=== PATIENT | male | born 1955 | race Caucasian/White ===

== ENCOUNTER → 2019-11-06 08:36 | Outpatient (BNVA) | payer MEDICARE, SELFPAY | PROVIDERS: Family Provider Nurse Practitioner Family; PCP Nurse Practitioner Family; Visit Provider Nurse Practitioner Family | DX: E11.65 Type 2 diabetes mellitus with hyperglycemia (principal); Z79.4 Long term (current) use of insulin; E78.5 Hyperlipidemia, unspecified; I10 Essential (primary) hypertension | CPT/HCPCS: 80053; 80061; 83036; 84443; 85025 ==

== ENCOUNTER → 2020-06-30 10:54 | Outpatient (BNVA) | payer MEDICARE, SELFPAY | PROVIDERS: Family Provider Nurse Practitioner Family; PCP Nurse Practitioner Family; Visit Provider Nurse Practitioner Family | DX: M25.551 Pain in right hip (principal) | CPT/HCPCS: 73502 ==

== ENCOUNTER 2020-07-20 08:20 | Outpatient (CLI) | payer MEDICARE, SELFPAY ==
--- NOTE | 2020-07-20 08:45 | MR_ITS ---
WS: [id number] MRI RIGHT hip, noncontrast. HISTORY: RIGHT hip pain. COMPARISON: RIGHT hip radiograph 06/30/2020. There is increase fluid in the medial RIGHT hip joint. There is an osteophyte from the medial femoral head and a corresponding osteophyte from the acetabular fossa causing narrowing of the hip joint. Th is is at the location of the increased fluid and thickening of the labrum and ligamentum teres. No ma rrow edema or fracture. No definite labral tear. A small loose body may also be present. There is a r ounded 3 mm low signal nodule in the joint space. May be thickening of the labrum or small loose body . These findings are asymmetric to the LEFT hip. MR/MR hip RT wo con* [id number] IMPRESSION: 1. Focal osteophyte from the medial femoral head and acetabulum causing narrowi ng of the medial RIGHT joint space with a small amount of associated fluid and labral thickening. 2. Possible 3 mm loose body in the medial joint space associated with the joint space narrowing and labral thickening.
== END 2020-07-20 08:21 | disposition home or self-care (01) ==
PROVIDERS: PCP Nurse Practitioner Family; Visit Provider Nurse Practitioner Family
DX: M25.551 Pain in right hip (principal)
CPT/HCPCS: 73721

== ENCOUNTER → 2020-09-06 10:05 | Outpatient (BNVA) | payer MEDICARE, SELFPAY | PROVIDERS: PCP Nurse Practitioner Family; Referring Provider Nurse Practitioner Family; Visit Provider Specialist | DX: G25.0 Essential tremor (principal) | CPT/HCPCS: 99204 ==

== ENCOUNTER → 2020-11-15 10:22 | Outpatient (BNVA) | payer MEDICARE, SELFPAY | PROVIDERS: PCP Nurse Practitioner Family; Visit Provider Nurse Practitioner Family | DX: E11.69 Type 2 diabetes mellitus with other specified complication (principal); Z79.4 Long term (current) use of insulin; Z12.5 Encounter for screening for malignant neoplasm of prostate; E11.42 Type 2 diabetes mellitus with diabetic polyneuropathy | CPT/HCPCS: 80053; 80061; 83036; 84443; 85025; G0103 ==

== ENCOUNTER 2021-05-05 12:08 | Emergency (ER) | payer MEDICARE, SELFPAY ==
[2021-05-05 12:19] VITALS: BP 126/69; PULSE 75; RESP 16; TEMP 36.6; O2SAT 97; BMI 24.1
--- NOTE | 2021-05-05 12:35 | W.ED.WOUNDLC ---
HPI - Wound/Laceration General: Chief Complaint: Wound/Laceration Stated Complaint: Cutt Knee has [place] on it Time Seen by Provider: 05/05/21 12:21 History of Present Illness: Laceration left knee from chainsaw accident happened earlier today. No active bleeding. Patient's tetanus is not up-to-date. Associated symptoms: Denies chills, fever(s), nausea or vomiting Review of Systems Const: Denies: fever(s), chills or body aches Eyes: Denies: eye discomfort ENMT: Denies: throat pain Card: Denies: chest pain Resp: Denies: dyspnea GI: Denies: abdominal pain, nausea or vomiting Skin/Breast: Reports: other (Laceration to left knee to chainsaw accident this morning.); Denies: rash Neuro: Denies: headache(s) Psych: Denies: depression or suicidal ideation [facility] ED PFSH: Medical History Diabetic neuropathy Dyslipidemia Essential hypertension Type 2 diabetes mellitus Surgical History No pertinent past surgical history Family History Father Cancer Social History Smoking and tobacco status: never smoked Quit status (tobacco): has quit using tobacco Second hand smoke exposure: No Smoking risk assessment/counseling performed?: No Alcohol intake: never Desire information about alcohol rehabilitation?: No Counseling given: No Desire information about substance/drug rehabilitation?: No Counseling given: No Adopted: No Caregiver/support person: No Lives independently: Yes Household members: spouse Housing: House Marital status: History of recent travel: No Physical Exam Const: COMMON NORMALS: no acute distress Extremity: LEFT LOWER EXTREMITY: Yes knee joint (No damage to the knee joint does have avulsion to skin above the kneecap.) Skin: OTHER: Avulsion injury approximately one half 2 inches long above left kneecap. Area was cleaned. Wound left open due to wound with which is with the chain. No foreign body seen. Superficial depth. Dressing applied Course Vital Signs: Vital signs: Vital Signs Temperature 97.9 F 05/05/21 12:19 Pulse Rate 75 03/17/22 12:19 Respiratory Rate 16 05/05/21 12:19 Blood Pressure 126/69 05/05/21 12:19 Pulse Oximetry 97 05/05/21 12:19 MDM - Wound/Laceration Medical Decision Making Skin avulsion left knee Discharge Plan Discharge Patient Disposition: Home Clinical Impression: Avulsion of skin Condition: Stable Prescriptions: New clindamycin HCl 300 mg capsule 300 mg PO Q8H 7 Days Qty: 21 0RF No Action amitriptyline 75 mg tablet 75 mg PO DAILY 90 Days Qty: 90 3RF Lantus Solostar U-100 Insulin 100 unit/mL (3 mL) insulin pen 28 unit SUBCUT DAILY 90 Days Qty: 15 3RF lovastatin 20 mg tablet 20 mg PO DAILY 90 Days Qty: 90 3RF metformin 1,000 mg tablet 1,000 mg PO BID 90 Days Qty: 180 3RF lisinopril-hydrochlorothiazide 20-12.5 mg tablet 1 tab PO DAILY 90 Days Qty: 90 3RF insulin aspart U-100 [Novolog Flexpen U-100 Insulin] 100 unit/mL (3 mL) insulin pen See Rx Instructions SUBCUT QID 90 Days Qty: 15 3RF Rx Instructions: 8 units SUBCUT four times daily; per sliding scale Discharge Orders: Discharge ED (Routine); Ordered 05/05/21 Ordered By: Duglas Sutton Referrals: Elba Jameson FNP-C [Primary Care Provider] - Discharge Diet: Usual diet Discharge Activity: Increase activity as tolerated Patient Instructions: Skin Avulsion (ED) Activity Restrictions/Additional Instructions: Take medication as directed. Keep area clean. Can use Vaseline petroleum keep wound moist and keep wound covered. It will take time for that wound to granulate in. Watch for signs symptoms of infection follow-up your primary care provider as necessary. Coding Level of Care Code ED Rehabilitation Consultant for Andi Fwd Exam Expanded Problem Focused
[2021-05-05] MEDS: tetanus-dipt-pertussis 0.5 mL SDV IM (12:54)
== END 2021-05-05 12:57 | disposition home or self-care (01) ==
PROVIDERS: Emergency Provider Nurse Practitioner Family; PCP Nurse Practitioner Family
DX: S81.002A Unspecified open wound, left knee, initial encounter (principal); W29.3XXA Contact with powered garden and outdoor hand tools and machinery, initial encounter; Z79.84 Long term (current) use of oral hypoglycemic drugs; Z79.4 Long term (current) use of insulin; E11.40 Type 2 diabetes mellitus with diabetic neuropathy, unspecified; E78.5 Hyperlipidemia, unspecified; I10 Essential (primary) hypertension; Z87.891 Personal history of nicotine dependence; Z23 Encounter for immunization
CPT/HCPCS: 90471; 90715; 99282

== ENCOUNTER → 2021-07-20 14:02 | Outpatient (BNVA) | payer MEDICARE, SELFPAY | PROVIDERS: PCP Nurse Practitioner Family; Visit Provider Nurse Practitioner Family | DX: R82.90 Unspecified abnormal findings in urine (principal); N39.0 Urinary tract infection, site not specified | CPT/HCPCS: 81000; 87077; 87086; 87184 ==

== ENCOUNTER → 2021-08-04 10:04 | Outpatient (BNVA) | payer MEDICARE, SELFPAY | PROVIDERS: PCP Nurse Practitioner Family; Visit Provider Nurse Practitioner Family | DX: R82.90 Unspecified abnormal findings in urine (principal); R39.9 Unspecified symptoms and signs involving the genitourinary system | CPT/HCPCS: 81000 ==

== ENCOUNTER → 2021-11-24 10:50 | Outpatient (BNVA) | payer MEDICARE, SELFPAY | PROVIDERS: PCP Nurse Practitioner Family; Visit Provider Nurse Practitioner Family | DX: E11.69 Type 2 diabetes mellitus with other specified complication (principal); Z79.4 Long term (current) use of insulin; E78.5 Hyperlipidemia, unspecified; I10 Essential (primary) hypertension; E11.42 Type 2 diabetes mellitus with diabetic polyneuropathy | CPT/HCPCS: 80053; 80061; 83036; 84443; 85025 ==

== ENCOUNTER → 2022-11-15 10:15 | Outpatient (BNVA) | payer MEDICARE, SELFPAY | PROVIDERS: PCP Nurse Practitioner Family; Visit Provider Nurse Practitioner Family | DX: E78.5 Hyperlipidemia, unspecified (principal); E11.69 Type 2 diabetes mellitus with other specified complication; Z79.4 Long term (current) use of insulin; I10 Essential (primary) hypertension; E11.42 Type 2 diabetes mellitus with diabetic polyneuropathy; E11.40 Type 2 diabetes mellitus with diabetic neuropathy, unspecified; Z12.5 Encounter for screening for malignant neoplasm of prostate | CPT/HCPCS: 80053; 80061; 83036; 84443; 85025; G0103 ==

== ENCOUNTER → 2022-12-26 14:25 | Outpatient (BNVA) | payer MEDICARE, SELFPAY | PROVIDERS: PCP Nurse Practitioner Family; Visit Provider Nurse Practitioner Family | DX: S29.9XXA Unspecified injury of thorax, initial encounter (principal); X58.XXXA Exposure to other specified factors, initial encounter | CPT/HCPCS: 71046 ==

== ENCOUNTER → 2023-03-28 09:10 | Outpatient (BNVA) | payer MEDICARE, SELFPAY | PROVIDERS: PCP Nurse Practitioner Family; Visit Provider Nurse Practitioner Family | DX: M79.631 Pain in right forearm (principal) | CPT/HCPCS: 73090 ==

== ENCOUNTER → 2024-03-04 11:01 | Outpatient (BNVA) | payer MEDICARE, SELFPAY | PROVIDERS: PCP Nurse Practitioner Family; Visit Provider Nurse Practitioner Family | DX: E11.42 Type 2 diabetes mellitus with diabetic polyneuropathy (principal); G25.0 Essential tremor | CPT/HCPCS: 80053; 80061; 83036; 84443; 85025 ==

== ENCOUNTER → 2024-10-24 10:59 | Outpatient (BNVA) | payer MEDICARE, SELFPAY | PROVIDERS: PCP Nurse Practitioner Family; Referring Provider Nurse Practitioner Family; Visit Provider Nurse Practitioner | DX: F03.90 Unspecified dementia, unspecified severity, without behavioral disturbance, psychotic disturbance, mood disturbance, and anxiety (principal); R41.89 Other symptoms and signs involving cognitive functions and awareness; R53.83 Other fatigue | CPT/HCPCS: 36415; 82607; 84443; 99213 ==

== ENCOUNTER 2024-11-12 10:49 | Outpatient (CLI) | payer MEDICARE, SELFPAY ==
--- NOTE | 2024-11-12 11:00 | MR_ITS ---
WS: [id number] MRI BRAIN WITH AND WITHOUT CONTRAST HISTORY: R41.89 - Other symptoms and signs involving cognitive fun... COMPARISON: None available. TECHNIQUE: Multiplanar imaging performed through the brain with MultiHance 15 ml's IV. No diffusion abnormalities. Moderate symmetric atrophy in the cerebrum. Mild cerebellar atrophy. There are extensive T2 and FLAIR signal hyperintensities throughout the white matter extending from the supratentorial white matter inferiorly extending around the ventricles. No hemosiderin. No white matter changes in the lonnie or cerebellum. Moderate bilateral hippocampal atrophy. No susceptibility artifacts or prior lacunar infarcts. Mildly prominent ventricles and extra-axial spaces on the basis of atrophy. Clivus and pituitary gland are normal. Visualized posterior fossa and brainstem are also normal. Postcontrast images are negative for masses or vascular malformations. Dural venous sinuses are normal. Paranasal sinuses: Well aerated with no significant disease. Mastoid air cells: Normal. Calvarium and scalp: Normal. MR/MR head wo/w con [id number] IMPRESSION: 1. Normal diffusion imaging. No acute infarct or hemorrhage. 2. Advanced T2 and FLAIR signal hyperintensities in the supratentorial brain. This can be noted with advanced small vessel disease, hypertension, diabetes an d smoking. There is no enhancement involving any of the hyperintensities. 3. No enhancing masses or vascular malformations. 4. Moderate hippocampal atrophy. 5. Moderate cerebral and mild cerebellar atrophy.
[2024-11-12] MEDS: gadobenate dimeglumine 20 mL vial 15 ML IV (11:42)
== END 2024-11-12 10:50 | disposition home or self-care (01) ==
PROVIDERS: PCP Nurse Practitioner Family; Visit Provider Nurse Practitioner
DX: G31.9 Degenerative disease of nervous system, unspecified (principal); I67.89 Other cerebrovascular disease
CPT/HCPCS: 70553

== ENCOUNTER → 2024-12-23 12:44 | Outpatient (BNVA) | payer MEDICARE, SELFPAY | PROVIDERS: PCP Nurse Practitioner Family; Visit Provider Specialist | DX: G30.9 Alzheimer's disease, unspecified (principal); E11.42 Type 2 diabetes mellitus with diabetic polyneuropathy; F02.818 Dementia in other diseases classified elsewhere, unspecified severity, with other behavioral disturbance; G25.0 Essential tremor | CPT/HCPCS: 99215 ==